=== PATIENT | male | born 1960 | race Caucasian/White ===

== ENCOUNTER 2017-11-14 08:07 | Emergency (ER) | payer BC ==
[2017-11-14 08:26] VITALS: BP 155/111
--- NOTE | 2017-11-14 08:46 | UC ---
Respiratory Complaint HPI - HPI Summary HPI Summary: Pt c/o cough, fever and generalized malaise X 2 days. Pt has history of kidney transplant and is scheduled for hip replacement next week. Pt sitting comfortably in exam room in no acute distress. - History of Current Complaint Chief Complaint: UCRespiratory Stated Complaint: FLU LIKE SYMPTOMS Time Seen by Provider: 11/14/17 08:21 Hx Obtained From: Patient Onset/Duration: Sudden Onset, Lasting Days, Still Present Timing: Constant Severity Initially: Mild Severity Currently: Mild Character: Cough: Nonproductive Aggravating Factors: Deep Breaths Alleviating Factors: Nothing Associated Signs And Symptoms: Positive: URI, Nasal Congestion - Risk Factors Pulmonary Embolism Risk Factors: Negative Cardiac Risk Factors: Negative, Hypertension Pseudomonas Risk Factors: Chronic Steriod Use Past 3 Months - kidney transplant Tuberculosis Risk Factors: Corticosteriod Use - Allergies/Home Medications Allergies/Adverse Reactions: Allergies Allergy/AdvReac Type Severity Reaction Status Date / Time No Known Allergies Allergy Verified 11/14/17 08:19 PMH/Surg Hx/FS Hx/Imm Hx Previously Healthy: Yes - kidney transplant Cardiovascular History: Hypertension - Surgical History Surgical History: Yes Surgery Procedure, Year, and Place: (has 3 kidneys). kidney transplant 11/24 - Family History Known Family History: Positive: Cardiac Disease - Social History Occupation: Retired Lives: With Family Alcohol Use: None Substance Use Type: None Smoking Status (MU): Never Smoked Tobacco Have You Smoked in the Last Year: No - Immunization History Most Recent Influenza Vaccination: not this season Review of Systems Constitutional: Fever, Chills, Fatigue Eyes: Negative ENT: Negative Respiratory: Cough Cardiovascular: Negative Gastrointestinal: Negative Genitourinary: Negative Motor: Negative Neurovascular: Negative Musculoskeletal: Negative Neurological: Negative Psychological: Negative Is Patient Immunocompromised?: Yes - kidney transplant All Other Systems Reviewed And Are Negative: Yes Physical Exam Triage Information Reviewed: Yes Appearance: Well-Appearing Vital Signs: Initial Vital Signs Temp 98.7 F 11/14/17 08:21 Pulse 101 11/14/17 08:21 Resp 20 11/14/17 08:21 BP 155/111 11/14/17 08:21 Pulse Ox 98 11/14/17 08:21 Vital Signs Reviewed: Yes Eye Exam: Normal ENT Exam: Normal Dental Exam: Normal Neck exam: Normal Respiratory Exam: Normal Respiratory: Positive: Other: - cough, Cardiovascular Exam: Normal Musculoskeletal Exam: Normal Neurological Exam: Normal Psychological Exam: Normal Skin Exam: Normal UC Diagnostic Evaluation - Laboratory O2 Sat by Pulse Oximetry: 98 Respiratory Course/Dx - Course Course Of Treatment: I discussed with the pt his VS and the results of the rapid flu test. I discussed with him that if his symptoms worsened that he needed to seek care at the closest ER immediately. I also discussed wihtthe pt the need to alert the orthopedic surgeon of his positive flu results as well as his PCP, if needed his transplant surgeon and nephrhologist. Pt verbalized understanding and agreed to plan of care. - Differential Dx/Diagnosis Differential Diagnosis/HQI/PQRI: Bronchitis, Influenza, Other - HTN Provider Diagnoses: Influenza A. Bronchitis. Elevated blood pressure. Tachycardia Discharge - Discharge Plan Condition: Stable Disposition: HOME Prescriptions: Amoxicillin PO (*) [Amoxicillin 500 MG CAP*] 500 mg PO Q12H #20 cap Benzonatate CAP* [Tessalon 100 MG CAP*] 100 mg PO Q8H PRN #30 cap PRN Reason: Cough Oseltamivir CAP* [Tamiflu CAP*] 75 mg PO Q12H #10 cap Patient Education Materials: Influenza (DC), Acute Bronchitis (ED) Referrals: Raul Vivsa MD [Primary Care Provider] - If Needed Mir ADAME,Raul Paniagua [Medical Doctor] - If Needed
--- NOTE | 2017-11-14 09:03 | RAD ---
INDICATION: Cough, wheezing 2 weeks duration. COMPARISON: August 27, 2013 TECHNIQUE: Dual energy PA and routine lateral views of the chest were obtained. REPORT: RIGHT chest port at level of superior vena cava directed central. No focal pulmonary lesion, compelling alveolar consolidation, pleural effusion, pneumothorax. Negative for cardiomegaly. Unremarkable central pulmonary vasculature. Mildly tortuous descending thoracic aorta. IMPRESSION: No evidence for pneumonia or other acute pulmonary or cardiac process.
== END 2017-11-14 08:58 | disposition home or self-care (01) ==
LOC: UCCORT 08:07
DX: J09.X2 Influenza due to identified novel influenza A virus with other respiratory manifestations (principal); J40 Bronchitis, not specified as acute or chronic; I10 Essential (primary) hypertension; R00.0 Tachycardia, unspecified; Z94.0 Kidney transplant status
CPT/HCPCS: 71046; 87502; 99212; G0463

== ENCOUNTER 2019-03-23 08:16 | Emergency (ER) | payer BC ==
[2019-03-23 08:25] VITALS: BP 190/129
--- NOTE | 2019-03-23 11:50 | UC ---
Shortness of Breath HPI - HPI Summary HPI Summary: 2 DAYS OF SHORTNESS OF BREATH WITH EXERTION. STATES HE FEELS LIKE HE CAN'T TAKE IN A DEEP BREATH. HAS MILD DRY COUGH BUT DENIES ANY FEVER, CHEST PAIN, NAUSEA/VOMITING. NO HEADACHE. ON ARRIVAL TO THE HIS BLOOD PRESSURE WAS SIGNIFICANTLY ELEVATED 190/129. HE HAS HISTORY OF KIDNEY TRANSPLANT DUE TO "REFLUX". STATES HIS CREATININE IS ELEVATED BUT HAS NOT HAD LABS IN THE PAST SEVERAL MONTHS. FOLLOWS WITH SPECIALISTS AT [facility]. - History of Current Complaint Chief Complaint: UCRespiratory Stated Complaint: SOB Time Seen by Provider: 03/23/19 08:28 Hx Obtained From: Patient Onset/Duration: Gradual Onset, Lasting Days, Still Present Timing: Constant Current Severity: Moderate Dyspnea At: Exertion Aggrevating Factors: Movement Alleviating Factors: Other - REST Associated Signs & Symptoms: Negative: Cough (Productive), Wheezing, Chest Pain w/Cough, Fever, Chills, Dizzy - Allergy/Home Medications Allergies/Adverse Reactions: Allergies Allergy/AdvReac Type Severity Reaction Status Date / Time No Known Allergies Allergy Verified 03/23/19 08:21 Home Medications: Home Medications Imiquimod [Zyclara] 7.5 gm TP DAILY 03/23/19 [History Confirmed 03/23/19] PMH/Surg Hx/FS Hx/Imm Hx - Additional Past Medical History Additional PMH: GOUT Cardiovascular History: Hypertension GI/ History: Renal Disease - KIDNEY TRANSPLANT. Other Cancer History: POST TRANSPLANT LYMPHOMA - Surgical History Surgical History: Yes Surgery Procedure, Year, and Place: (has 3 kidneys). kidney transplant 11/24 - Family History Known Family History: Positive: Cardiac Disease - Social History Alcohol Use: None Substance Use Type: None Smoking Status (MU): Never Smoked Tobacco Have You Smoked in the Last Year: No - Immunization History Most Recent Influenza Vaccination: not this season Review of Systems All Other Systems Reviewed And Are Negative: Yes Constitutional: Positive: Negative ENT: Positive: Negative Respiratory: Positive: Shortness Of Breath Cardiovascular: Positive: Negative Gastrointestinal: Positive: Negative Musculoskeletal: Positive: Negative Neurological: Positive: Negative Physical Exam Triage Information Reviewed: Yes Appearance: Well-Appearing, No Pain Distress, Well-Nourished Vital Signs: Initial Vital Signs Temp 98.4 F 03/23/19 08:21 Pulse 72 03/23/19 08:21 Resp 20 03/23/19 08:21 BP 190/129 03/23/19 08:21 Pulse Ox 96 03/23/19 08:21 Vital Signs Reviewed: Yes Eyes: Positive: Conjunctiva Clear ENT: Positive: Hearing grossly normal Neck: Positive: Supple Respiratory Exam: Normal Cardiovascular: Positive: RRR - 2/6 SYSTOLIC MURMUR Abdomen Description: Positive: Soft Musculoskeletal: Positive: No Edema Neurological: Positive: Alert Psychological: Positive: Age Appropriate Behavior Skin: Negative: Rashes Diagnostics - EKG Cardiac Rate: NL - 65bpm Cardiac Rhythm: Sinus: Normal Ectopy: None ST Segment: Normal Shortness of Breath Dx - Course Course Of Treatment: PATIENT ARRIVES WITH SENSATION OF DYSPNEA ON EXERTION AND DANGEROUSLY ELEVATED BLOOD PRESSURE. HE HAS A HISTORY OF A KIDNEY TRANSPLANT AND POST TRANSPLANT LYMPHOMA. HE IS NOT CURRENTLY ON ANY ANTI-REJECTION MEDICATIONS. STATES HIS CREATININE HAS BEEN SLOWLY RISING. IS FOLLOWED BY SPECIALISTS AT [facility]. PATIENT REQUIRES HIGHER LEVEL OF CARE THAN WHAT IS AVAILABLE AT THE . ADVISED AMBULANCE TRANSFER TO [facility]. PT DECLINES AMBULANCE. STATES HE WILL GET THERE HIMSELF. ADVISED THAT BY NOT TRAVELING IN A MONITORED SETTING HE COULD BE RISKING WORSENING OF HIS CONDITION THAT COULD POSE A THREAT TO HIS LIFE , HEALTH AND MEDICAL SAFETY. HE VERBALIZES UNDERSTANDING AND CONTINUES TO DECLINE AMBULANCE TRANSFER. SIGNED OUT AMA. - Differential Dx/Diagnosis Provider Diagnosis: SOB (shortness of breath) on exertion, Hypertensive crisis Discharge - Sign-Out/Discharge Documenting (check all that apply): Patient Departure All imaging exams completed and their final reports reviewed: No Studies - Discharge Plan Condition: Guarded Disposition: AGAINST MEDICAL ADVICE Referrals: Raul Vivas MD [Primary Care Provider] - - Billing Disposition and Condition Condition: GUARDED Disposition: Against Medical Advice
== END 2019-03-23 08:52 | disposition left against medical advice (07) ==
LOC: UCCORT 08:16
DX: R06.02 Shortness of breath (principal); I16.9 Hypertensive crisis, unspecified; I10 Essential (primary) hypertension; Z94.0 Kidney transplant status
CPT/HCPCS: 93005; 99212; G0463